=== PATIENT | male | born 1995 | race Caucasian/White ===

== ENCOUNTER 2024-08-05 16:09 | Emergency (ER) | payer SELFPAY ==
[~2024-08-05] VITALS: Ht 177.8 cm; Wt 95.3 kg
[2024-08-05] MEDS ORDERED: AMOXICILLIN500 MG PO (17:15)
[2024-08-05] MEDS: IBUPROFEN 600 MG TAB PO STA (17:31)
[2024-08-05] MEDS: ACETAMINOPHEN 325 MG TAB PO ONE (17:32)
[2024-08-05 17:41] VITALS: PULSE 87; RESP 18; TEMP 99.8; O2SAT 98
== END 2024-08-05 17:22 | disposition left against medical advice (07) ==
LOC: FSED 17:10
DX: R50.9 Fever, unspecified (principal); J02.0 Streptococcal pharyngitis
CPT/HCPCS: 83518; 87400